=== PATIENT | male | born 1950 | race Caucasian/White ===

== ENCOUNTER → 2017-09-08 | Outpatient (CLI) | payer OTHER, BC ==
[~2017-09-08] MED LIST: AMLO-114 PO; ASPI81TA21 PO; ATOR10TA82 PO; INSDGI SC; LISI40TA PO; METO50TA8 PO; SITA50TA5 PO; TAMS0.4C59 PO; VGR50 PO; WARF5TAB7 PO; WARF5TAB90 PO
== END | disposition home or self-care (01) ==
LOC: C.RDSM 19:39
PROVIDERS: ATTEND Orthopaedic Surgery
DX: R52 Pain, unspecified (principal)